=== PATIENT | male | born 1955 | race Caucasian/White ===

== ENCOUNTER → 2020-01-09 | Outpatient (CLI) | payer BC ==
--- NOTE | 2020-01-09 15:38 | Diagnostic Imaging Report ---
INDICATION: Pain after fall off roof. FINDINGS: There are mild degenerative changes in lumbar spine and hips. There is however no acute fracture or dislocation. Soft tissues are grossly unremarkable. IMPRESSION: Mild degenerative changes are otherwise unremarkable. Dictated by: Dictated on workstation # [id number]
--- NOTE | 2020-01-09 15:44 | Diagnostic Imaging Report ---
INDICATION: Fall with right shoulder pain. EXAMINATION: AP, oblique, and transscapular views of the right shoulder are obtained. FINDINGS: There is no acute fracture or acute bony abnormality. 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 There is degenerative change of the glenohumeral joint. 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 Degenerative changes of the glenohumeral joint. No acute fracture or dislocation. Dictated by: Dictated on workstation # [id number]
== END ==
LOC: RAD 14:52
PROVIDERS: ATTEND Nurse Practitioner Family
DX: M19.011 Primary osteoarthritis, right shoulder (principal); M16.0 Bilateral primary osteoarthritis of hip; M47.816 Spondylosis without myelopathy or radiculopathy, lumbar region; W13.2XXA Fall from, out of or through roof, initial encounter
CPT/HCPCS: 72170; 73030

== ENCOUNTER 2022-07-31 09:43 | Outpatient (RCR) | payer BC, MEDICARE | END 2022-07-31 13:40 | disposition home or self-care (01) | PROVIDERS: ATTEND Orthopaedic Surgery | DX: M17.0 Bilateral primary osteoarthritis of knee (principal); I10 Essential (primary) hypertension ==

== ENCOUNTER 2023-02-05 05:35 | Outpatient (CLI) | payer MEDICARE ==
[~2023-02-05] VITALS: Ht 175.3 cm; Wt 90.9 kg
[2023-02-10] MEDS ORDERED: CELE-91 PO (12:42)
[2023-02-10] MEDS ORDERED: PARO20TA5 PO (12:42)
[2023-02-10] MEDS ORDERED: LOSA100T58 PO (12:42)
== END 2023-02-10 12:56 | disposition home or self-care (01) ==
LOC: PREOP 05:35
PROVIDERS: ATTEND Specialist
DX: Z01.818 Encounter for other preprocedural examination (principal)

== ENCOUNTER 2023-02-13 06:43 | Day surgery (SDC) | payer MEDICARE ==
[~2023-02-13] VITALS: Ht 175.3 cm; Wt 90.9 kg
[~2023-02-13 06:43] MED LIST: CELE-91 PO; LOSA100T58 PO; PARO20TA5 PO
[2023-02-13 06:55] VITALS: BP 115/78
[2023-02-13] MEDS ORDERED: LIDOCAINE PF 1% 2 ML VIAL IR PRN (07:00)
[2023-02-13] MEDS ORDERED: TIMOLOL 0.5% (CATARACTS) 0.3 ML BTL OU PRN (07:00)
[2023-02-13] MEDS ORDERED: MOXIFLOXACIN OPHTH SOLN 5 MG/ML 0.5 ML SYRINGE OP ONE (07:00)
[2023-02-13] MEDS ORDERED: POVIDONE IODINE OPHTH SOLN 5% 30 ML OP ONE (07:00)
[2023-02-13] MEDS: TETRACAINE 0.5% OPHTH SOLN 4 ML BTL (SINGLE DOSE ONLY) OU PRN ×4 (07:08→07:19)
[2023-02-13] MEDS: TROPICAMIDE 1% OPH SOLN (MYDRIACYL) 15 ML BTL OP SCH ×3 (07:09→07:20)
[2023-02-13] MEDS: PHENYLEPHRINE 10% OPHTH SOLN 5 ML BTL OU SCH ×3 (07:09→07:20)
--- NOTE | 2023-02-13 07:42 | Ophthalmologist Pre-Op Note ---
Pre-Operative Progress Note H&P Reviewed The H&P was reviewed, patient examined and no changes noted. Date H&P Reviewed: Feb 13, 2023 Time H&P Reviewed: 07:41 Pre-Op Dx Cataract, Right Eye MARLYS DELANEY MD Feb 13, 2023 07:42
[2023-02-13] MEDS ORDERED: MIDAZOLAM INJ 2 MG/2 ML VIAL ONE (07:44)
--- NOTE | 2023-02-13 08:00 | Ophthalmology Operative Report ---
Cataract removal/placement IOL PREOPERATIVE DIAGNOSIS: Cataract Right Eye POSTOPERATIVE DIAGNOSIS: Cataract Right Eye PROCEDURE: Cataract removal and placement of posterior chamber implant, right eye SURGEON: Dionisio Delaney ANESTHESIA: Topical with sedation COMPLICATIONS: None ESTIMATED BLOOD LOSS: Minimal DESCRIPTION OF PROCEDURE: After proper informed consent was obtained, the patient, a 67 male, was taken to the Operating Room and the right eye was anesthetized with tetracaine. The right eye was then prepped and draped in the usual manner. A wire lid speculum was placed. A paracentesis was made at the left hand position. Preservative free lidocaine was injected into the anterior chamber followed by viscoelastic. A clear corneal incision was made in the temporal position. A capsulorrhexis was preformed and the central nuclear and cortical material were removed. The posterior capsule was polished and Frank 19.5 CNA0T0 IOL was placed into the capsular bag. The residual viscoelastic was aspirated and balanced saline solution was injected into the anterior chamber. Moxifloxacin was injected into the anterior chamber. The wound was checked and found to be water tight. The patient tolerated the procedure well without complications. DIONISIO DELANEY MD Feb 13, 2023 08:00
[2023-02-13 08:04] VITALS: BP 121/76
--- NOTE | 2023-02-13 12:09 | Anesthesia-General Post-Op ---
MAC Post Op Complications Complications None Follow Up Care/Instructions Patient Instructions None needed. Anesthesiology Discharge Order Discharge Order Patient was doing well this morning after the procedure with no complaints, stable vital signs, no apparent adverse anesthesia problems. No complications reported per nursing. MARII BENEDICT DO Feb 13, 2023 12:09
== END 2023-02-13 08:08 | disposition home or self-care (01) ==
LOC: SDC 06:43
PROVIDERS: ATTEND Specialist
DX: H25.9 Unspecified age-related cataract (principal)
CPT/HCPCS: 66984; V2632

== ENCOUNTER 2023-02-20 05:29 | Outpatient (CLI) | payer MEDICARE ==
[~2023-02-20] VITALS: Ht 175 cm; Wt 90.9 kg
== END 2023-02-20 08:56 | disposition home or self-care (01) ==
LOC: PREOP 05:29
PROVIDERS: ATTEND Specialist
DX: Z01.818 Encounter for other preprocedural examination (principal)

== ENCOUNTER 2023-02-27 06:43 | Day surgery (SDC) | payer MEDICARE ==
[~2023-02-27] VITALS: Ht 175 cm; Wt 90.9 kg
[2023-02-27] MEDS ORDERED: LIDOCAINE PF 1% 2 ML VIAL IR PRN (06:45)
[2023-02-27] MEDS ORDERED: TIMOLOL 0.5% (CATARACTS) 0.3 ML BTL OU PRN (06:45)
[2023-02-27] MEDS ORDERED: MOXIFLOXACIN OPHTH SOLN 5 MG/ML 0.5 ML SYRINGE OP ONE (06:45)
[2023-02-27] MEDS ORDERED: POVIDONE IODINE OPHTH SOLN 5% 30 ML OP ONE (06:45)
[2023-02-27] MEDS: TETRACAINE 0.5% OPHTH SOLN 4 ML BTL (SINGLE DOSE ONLY) OU PRN ×4 (06:55→07:13)
[2023-02-27] MEDS: PHENYLEPHRINE 10% OPHTH SOLN 5 ML BTL OU SCH ×3 (07:02→07:13)
[2023-02-27] MEDS: TROPICAMIDE 1% OPH SOLN (MYDRIACYL) 15 ML BTL OP SCH ×3 (07:03→07:13)
[2023-02-27 07:05] VITALS: BP 121/79
[2023-02-27] MEDS ORDERED: MIDAZOLAM INJ 2 MG/2 ML VIAL ONE (07:14)
--- NOTE | 2023-02-27 07:48 | Ophthalmologist Pre-Op Note ---
Pre-Operative Progress Note H&P Reviewed The H&P was reviewed, patient examined and no changes noted. Date H&P Reviewed: Feb 27, 2023 Time H&P Reviewed: 07:48 Pre-Op Dx Cataract, Left Eye MARLYS DELANEY MD Feb 27, 2023 07:48
--- NOTE | 2023-02-27 08:09 | Ophthalmology Operative Report ---
Cataract removal/placement IOL PREOPERATIVE DIAGNOSIS: Cataract Left Eye POSTOPERATIVE DIAGNOSIS: Cataract Left Eye PROCEDURE: Cataract removal and placement of posterior chamber implant, left eye SURGEON: Dionisio Delaney ANESTHESIA: Topical with sedation COMPLICATIONS: None ESTIMATED BLOOD LOSS: Minimal DESCRIPTION OF PROCEDURE: After proper informed consent was obtained, the patient, a 67 male, was taken to the Operating Room and the left eye was anesthetized with tetracaine. The left eye was then prepped and draped in the usual manner. A wire lid speculum was placed. A paracentesis was made at the left hand position. Preservative free lidocaine was injected into the anterior chamber followed by viscoelastic. A clear corneal incision was made in the temporal position. A capsulorrhexis was preformed and the central nuclear and cortical material were removed. The posterior capsule was polished and an Frank 19.0 CNA0T0 was placed into the capsular bag. The residual viscoelastic was aspirated and balanced saline solution was injected into the anterior chamber. Moxifloxacin was injected into the anterior chamber. The wound was checked and found to be water tight. The patient tolerated the procedure well without complications. DIONISIO DELANEY MD Feb 27, 2023 08:09
[2023-02-27 08:19] VITALS: BP 131/87
--- NOTE | 2023-02-27 12:10 | Anesthesia-General Post-Op ---
MAC Patient Condition Mental Status/LOC: Same as Preop Cardiovascular: Satisfactory Nausea/Vomiting: Absent Respiratory: Satisfactory Pain: Controlled Complications: Absent Post Op Complications Complications None Follow Up Care/Instructions Patient Instructions None needed. Anesthesiology Discharge Order Discharge Order Patient is doing well, no complaints, stable vital signs, no apparent adverse anesthesia problems. No complications reported per nursing. SNOW SARMIENTO CRNA Feb 27, 2023 12:10
== END 2023-02-27 08:20 | disposition home or self-care (01) ==
LOC: SDC 06:43
PROVIDERS: ATTEND Specialist
DX: H25.9 Unspecified age-related cataract (principal)
CPT/HCPCS: 66984; V2632